=== PATIENT | male | born 2000 | race Caucasian/White ===

== ENCOUNTER 2023-03-28 13:45 | Emergency (ER) | payer OTHER ==
[~2023-03-28] VITALS: Ht 162.6 cm; Wt 54.4 kg
[2023-03-28 14:29] VITALS: BP_SYST 110; PULSE 58; RESP 18; TEMP 98.3; O2SAT 98
[2023-03-28] MEDS ORDERED: KETOROLAC TROMETHAMINE 60 MG/2 ML VIAL IM ONE (16:00)
[2023-03-28] MEDS ORDERED: DICL20GE TP (16:45)
[2023-03-28] MEDS ORDERED: IBUP-1971 PO (16:45)
== END 2023-03-28 17:03 | disposition home or self-care (01) ==
LOC: SED 13:45
DX: S39.012A Strain of muscle, fascia and tendon of lower back, initial encounter (principal); Z79.899 Other long term (current) drug therapy; X50.0XXA Overexertion from strenuous movement or load, initial encounter; Y93.89 Activity, other specified; Y92.89 Other specified places as the place of occurrence of the external cause; Y99.8 Other external cause status
CPT/HCPCS: 99283; 96372; J1885